=== PATIENT | female | born 1965 | race Caucasian/White ===

== ENCOUNTER 2018-02-01 08:29 | Observation (INO) ==
[2018-02-01] MEDS ORDERED: ONDANSETRON 4 MG/2 ML VIAL IV STA (11:49)
[2018-02-01] MEDS ORDERED: HYDROmorphone 2 MG/1 ML VIAL IV STA (11:49)
[2018-02-01] MEDS ORDERED: ONDANSETRON 4 MG/2 ML VIAL ONE (11:56)
[2018-02-01] MEDS ORDERED: HYDROmorphone 2 MG/1 ML VIAL ONE (11:56)
[2018-02-01 12:14] LABS: Basophils % 0.3 % (0.0-0.8); Eosinophils # 0.1 10*3/uL (0.0-0.87); Hematocrit 33.8 VOL% (35.7-47.0); Hemoglobin 10.8 GM/DL (12.0-16.0); Immature Granulocytes % 0.5 %; Immature Granulocytes Absolute 0.06 #; Lymphocytes # 1.1 10*3/uL (1.4-4.0); Lymphocytes % 9.4 % (21.3-54.2); Mean Corpuscular Hemoglobin 27 PG (27-34); Mean Corpuscular Volume 83.7 FL (87-102); Mean Platelet Volume 8.9 FL (9.6-12.0); Monocytes # 0.9 10*3/uL (0.11-0.8); Monocytes % 7.3 % (1.7-12.7); Neutrophils # 9.7 10*3/uL (1.4-7.4); Neutrophils % 81.5 % (38.7-73.9); Platelet Count 222 T/CUMM (130-400); Red Blood Count 4.04 MC/CUMM (3.8-5.5); Red Cell Distribution Width 18.5 % (9.3-17.3); White Blood Count 11.9 T/CUMM (4-12)
[2018-02-01 12:32] LABS: Bilirubin,Total 0.5 MG/DL (0.2-1.0); Calcium 8.2 MG/DL (8.5-10.1); Osmolality,Calculated 271.1 MOS/KG (273-304); Potassium 3.9 MMOL/L (3.5-5.1); Total Protein 6.9 G/DL (6.4-8.3)
[2018-02-01 13:16] LABS: Apearance,Urine CLEAR (Clear); Bilirubin,Urine Negative (Negative); Blood, Urine Small mg/dL (Negative); Glucose,Urine (UA) Negative (Negative); Ketones,Urine Negative (Negative); Mucus,Urine Occasional /LPF (Occasional); Nitrite,Urine Negative (Negative); Protein,Urine Negative; RBC,Urine 14 /HPF (0-4); Squamous Epithelial Cell,Urine Occasional /HPF (0-10); Urine Color Yellow (Yellow); Urine Specific Gravity 1.017 (1.001-1.035); Urine Urobilinogen < 2.0 EU/DL (0.2-1.0); WBC,Urine 3 /HPF (0-6)
[2018-02-01] MEDS ORDERED: DEXAMETHASONE 10 MG/1 ML VIAL IV STA (14:29)
[2018-02-01] MEDS ORDERED: DEXAMETHASONE 10 MG/1 ML VIAL ONE (14:35)
[2018-02-01] MEDS ORDERED: guaiFENesin 200 MG/10 ML UDCUP PO PRN (17:14)
[2018-02-01] MEDS ORDERED: chlorproMAZINE INJ 25 MG in SODIUM CHLORIDE 0.9% 100 ML IV PRN (17:14)
[2018-02-01] MEDS ORDERED: traMADol 50 MG TABLET PO PRN (17:14)
[2018-02-01] MEDS ORDERED: ACETAMINOPHEN 325 MG TABLET PO PRN (17:14)
[2018-02-01] MEDS ORDERED: chlorproMAZINE 25 MG TABLET PO PRN (17:14)
[2018-02-01] MEDS ORDERED: BENZTROPINE 2 MG/2 ML AMP IV PRN (17:14)
[2018-02-01] MEDS ORDERED: TEMAZEPAM 7.5 MG CAPSULE PO PRN (17:14)
[2018-02-01] MEDS ORDERED: LACTULOSE 20 GM/30 ML UDCUP PO PRN (17:14)
[2018-02-01] MEDS ORDERED: LOPERAMIDE 2 MG CAPSULE PO PRN ×2 (17:14)
[2018-02-01] MEDS ORDERED: MYLANTA/LIDO VISC 2:1 300 ML BOTTLE SWISH/SWAL PRN (17:14)
[2018-02-01] MEDS ORDERED: MAGNESIUM HYDROXIDE SUSP 30 ML UDCUP PO PRN (17:14)
[2018-02-01] MEDS ORDERED: chlorproMAZINE INJ 50 MG in SODIUM CHLORIDE 0.9% 100 ML IV PRN (17:14)
[2018-02-01] MEDS ORDERED: ALUMINUM/MAGNES/SIMETH MAX STR 30 ML UDCUP PO PRN (17:14)
[2018-02-01] MEDS ORDERED: PROMETHAZINE INJ 25 MG in SODIUM CHLORIDE 0.9% 50 ML IV PRN (17:14)
[2018-02-01] MEDS ORDERED: MYLANTA/LIDO VISC 2:1 300 ML BOTTLE SWISH/SPIT PRN (17:14)
[2018-02-01] MEDS ORDERED: ALPRAZolam 0.25 MG TABLET PO PRN (17:14)
[2018-02-01] MEDS ORDERED: diphenhydrAMINE CAP 25 MG CAPSULE PO PRN (17:14)
[2018-02-01] MEDS: SODIUM CHLORIDE 0.9% 1,000 ML IV SCH (18:52)
[2018-02-01] MEDS ORDERED: DOCUSATE SODIUM 100 MG CAPSULE PO PRN (19:37)
[2018-02-01] MEDS ORDERED: POLYETHYLENE GLYCOL POWDER 17 GM PACK PO PRN (19:37)
[2018-02-01] MEDS ORDERED: SIMETHICONE CHEW 125 MG TABLET PO PRN (19:37)
[2018-02-01] MEDS: LETROZOLE 2.5 MG TABLET PO SCH (20:37)
[2018-02-01] MEDS: predniSONE 10 MG TABLET PO SCH (20:38)
[2018-02-01] MEDS: LEVOFLOXACIN 500 MG TABLET PO SCH (20:38)
[2018-02-01] MEDS: ONDANSETRON 4 MG/2 ML VIAL IV PRN (20:39)
[2018-02-01] MEDS: HYDROmorphone 2 MG/1 ML VIAL IV PRN (20:41)
[2018-02-01] MEDS ORDERED: PANTOPRAZOLE 40 MG TABLET PO SCH (21:00)
[2018-02-02] MEDS: ONDANSETRON 4 MG/2 ML VIAL IV PRN (06:17)
[2018-02-02] MEDS: HYDROmorphone 2 MG/1 ML VIAL IV PRN (06:20)
[2018-02-02] MEDS ORDERED: DOCUSATE SODIUM 100 MG CAPSULE PO PRN (07:47)
[2018-02-02] MEDS ORDERED: POLYETHYLENE GLYCOL POWDER 17 GM PACK PO PRN (07:47)
[2018-02-02] MEDS ORDERED: DEXAMETHASONE 4 MG/1 ML VIAL IV ONE (08:01)
[2018-02-02] MEDS: SODIUM CHLORIDE 0.9% 1,000 ML IV SCH (08:54)
[2018-02-02] MEDS ORDERED: FLUoxetine 20 MG CAPSULE PO SCH (09:00)
[2018-02-02] MEDS ORDERED: predniSONE 10 MG TABLET PO SCH (09:00)
[2018-02-02] MEDS ORDERED: MELOXICAM 7.5 MG TABLET PO SCH (09:00)
[2018-02-02] MEDS: CALCIUM (CARBONATE)/VITAMIN D 600 MG-400 UNIT TABLET PO SCH ×2 (09:00→09:14)
[2018-02-02] MEDS ORDERED: LEVOFLOXACIN 500 MG TABLET PO SCH ×2 (09:00)
[2018-02-02] MEDS ORDERED: CALCIUM (CARBONATE)/VITAMIN D 600 MG-400 UNIT TABLET PO SCH (09:00)
[2018-02-02] MEDS: predniSONE 10 MG TABLET PO SCH (09:06)
[2018-02-02] MEDS: LEVOFLOXACIN 500 MG TABLET PO SCH (09:13)
[2018-02-02] MEDS: LETROZOLE 2.5 MG TABLET PO SCH (10:03)
[2018-02-02 10:49] VITALS: BP 115/54
[2018-02-02] MEDS ORDERED: HEPARIN LOCK FLUSH 500 UNIT/5 ML SYRINGE IV PRN (12:53)
[2018-02-02] MEDS ORDERED: LETROZOLE 2.5 MG TABLET PO SCH (21:00)
[2018-02-02] MEDS ORDERED: PANTOPRAZOLE 40 MG TABLET PO SCH (21:00)
[2018-02-02] MEDS ORDERED: NON-FORMULARY MEDICATION (Omeprazole [Prilosec] 20 MG) PO SCH (21:00)
== END 2018-02-02 13:45 | disposition home or self-care (01) ==
LOC: N.ED 08:29 → N.EDINP 08:29 → N.4E 18:01
PROVIDERS: ADMIT Specialist; ATTEND Specialist

== ENCOUNTER 2018-04-28 15:14 | Inpatient (IN) ==
[2018-05-04 12:31] VITALS: BP 143/78
== END 2018-05-04 13:45 | disposition home or self-care (01) | DRG 871 ==
LOC: N.ED 15:14 → N.EDINP 17:39 → N.4E 19:02
PROVIDERS: ADMIT Specialist; ATTEND Specialist

== ENCOUNTER 2018-05-14 03:46 | Inpatient (IN) ==
[2018-05-14] MEDS ORDERED: PANTOPRAZOLE 40 MG VIAL IV STA (04:00)
[2018-05-14] MEDS ORDERED: ONDANSETRON 4 MG/2 ML VIAL IV STA ×2 (04:00→06:44)
[2018-05-14] MEDS ORDERED: SODIUM CHLORIDE 0.9% 1,000 ML IV STA (04:00)
[2018-05-14 04:11] LABS: Basophils % 0.1 % (0.0-0.8); Eosinophils % 0.2 % (0.00-10.9); Hematocrit 38.8 VOL% (35.7-47.0); Hemoglobin 12.7 GM/DL (12.0-16.0); Immature Granulocytes % 0.4 %; Immature Granulocytes Absolute 0.04 #; Lymphocytes # 0.6 10*3/uL (1.4-4.0); Lymphocytes % 6.2 % (21.3-54.2); Mean Corpuscular HGB Conc 32.7 GM/DL (32-36); Mean Corpuscular Hemoglobin 28 PG (27-34); Mean Corpuscular Volume 84.3 FL (87-102); Mean Platelet Volume 8.8 FL (9.6-12.0); Monocytes # 0.2 10*3/uL (0.11-0.8); Monocytes % 2.1 % (1.7-12.7); NRBC # 0.02 10*3/uL; Neutrophils # 8.6 10*3/uL (1.4-7.4); Platelet Count 164 T/CUMM (130-400); Red Cell Distribution Width 23.8 % (9.3-17.3); White Blood Count 9.4 T/CUMM (4-12)
[2018-05-14] MEDS ORDERED: HYDROmorphone 2 MG/1 ML VIAL ONE (04:12)
[2018-05-14] MEDS: HYDROmorphone 2 MG/1 ML VIAL IV PRN ×6 (04:13→20:04)
[2018-05-14 04:49] LABS: Albumin 2.3 G/DL (3.4-5.0); Band Neutrophils 8 % (0-10); Bilirubin,Total 3.5 MG/DL (0.2-1.0); Calcium 8.1 MG/DL (8.5-10.1); Lymphocytes 6 % (20-55); Osmolality,Calculated 275.8 MOS/KG (273-304); Platelet Estimate Normal; Potassium 3.5 MMOL/L (3.5-5.1); Segmented Neutrophils 84 % (50-85); Total Cells Counted 100; Total Protein 6.5 G/DL (6.4-8.3)
[2018-05-14 04:50] LABS: Burr Cells Slight; Hypochromasia 1+; Ovalocytes Slight
[2018-05-14 04:58] LABS: Apearance,Urine CLEAR (Clear); Bacteria,Urine Occasional /HPF (Few); Bilirubin,Urine Negative (Negative); Blood, Urine Small mg/dL (Negative); Glucose,Urine (UA) Negative (Negative); Ketones,Urine 5 mg/dL (Negative); Mucus,Urine Many /LPF (Occasional); Nitrite,Urine Negative (Negative); Protein,Urine 30 MG/DL; RBC,Urine 23 /HPF (0-4); Squamous Epithelial Cell,Urine Occasional /HPF (0-10); Urine Color Amber (Yellow); Urine Specific Gravity 1.018 (1.001-1.035); WBC,Urine 2 /HPF (0-6)
[2018-05-14] MEDS ORDERED: ONDANSETRON 4 MG/2 ML VIAL IV ONE (05:34)
[2018-05-14] MEDS ORDERED: ALUM/MAG/SIMETH/LIDO VISC 1:1 30 ML BOTTLE PO STA (06:40)
[2018-05-14] MEDS ORDERED: HYDROmorphone 2 MG/1 ML VIAL IV STA (06:43)
[2018-05-14 07:06] LABS: INR 1.1; Partial Thromboplastin Time 23.4 SECS (0-40)
[2018-05-14] MEDS ORDERED: traMADol 50 MG TABLET PO PRN (08:25)
[2018-05-14] MEDS ORDERED: MAGNESIUM HYDROXIDE SUSP 30 ML UDCUP PO PRN (08:25)
[2018-05-14] MEDS ORDERED: LACTULOSE 20 GM/30 ML UDCUP PO PRN (08:25)
[2018-05-14] MEDS ORDERED: ALUMINUM/MAGNES/SIMETH MAX STR 30 ML UDCUP PO PRN (08:25)
[2018-05-14] MEDS ORDERED: LOPERAMIDE 2 MG CAPSULE PO PRN ×2 (08:25)
[2018-05-14] MEDS ORDERED: ALPRAZolam 0.25 MG TABLET PO PRN (08:25)
[2018-05-14] MEDS ORDERED: PROMETHAZINE INJ 25 MG in SODIUM CHLORIDE 0.9% 50 ML IV PRN (08:25)
[2018-05-14] MEDS ORDERED: MYLANTA/LIDO VISC 2:1 300 ML BOTTLE SWISH/SWAL PRN (08:25)
[2018-05-14] MEDS ORDERED: ACETAMINOPHEN 325 MG TABLET PO PRN (08:25)
[2018-05-14] MEDS ORDERED: BENZTROPINE 2 MG/2 ML AMP IV PRN (08:25)
[2018-05-14] MEDS ORDERED: MYLANTA/LIDO VISC 2:1 300 ML BOTTLE SWISH/SPIT PRN (08:25)
[2018-05-14] MEDS ORDERED: diphenhydrAMINE CAP 25 MG CAPSULE PO PRN (08:25)
[2018-05-14] MEDS ORDERED: chlorproMAZINE INJ 25 MG in SODIUM CHLORIDE 0.9% 100 ML IV PRN (08:25)
[2018-05-14] MEDS ORDERED: guaiFENesin 200 MG/10 ML UDCUP PO PRN (08:25)
[2018-05-14] MEDS ORDERED: chlorproMAZINE INJ 50 MG in SODIUM CHLORIDE 0.9% 100 ML IV PRN (08:25)
[2018-05-14] MEDS ORDERED: TEMAZEPAM 7.5 MG CAPSULE PO PRN (08:25)
[2018-05-14] MEDS ORDERED: chlorproMAZINE 25 MG TABLET PO PRN (08:25)
[2018-05-14] MEDS: SODIUM CHLORIDE 0.9% 1,000 ML IV SCH (11:38)
[2018-05-15] MEDS: SODIUM CHLORIDE 0.9% 1,000 ML IV SCH ×3 (00:58→20:30)
[2018-05-15 05:13] LABS: Basophils # 0.1 10*3/uL (0.0-0.2); Basophils % 0.8 % (0.0-0.8); Eosinophils % 0.4 % (0.00-10.9); Hematocrit 32.4 VOL% (35.7-47.0); Hemoglobin 10.6 GM/DL (12.0-16.0); Immature Granulocytes % 2.2 %; Immature Granulocytes Absolute 0.17 #; Lymphocytes # 0.8 10*3/uL (1.4-4.0); Lymphocytes % 9.8 % (21.3-54.2); Mean Corpuscular HGB Conc 32.7 GM/DL (32-36); Mean Corpuscular Hemoglobin 28 PG (27-34); Mean Corpuscular Volume 83.9 FL (87-102); Mean Platelet Volume 9.2 FL (9.6-12.0); Monocytes # 0.3 10*3/uL (0.11-0.8); Monocytes % 4.2 % (1.7-12.7); Neutrophils # 6.3 10*3/uL (1.4-7.4); Neutrophils % 82.6 % (38.7-73.9); Platelet Count 108 T/CUMM (130-400); Red Blood Count 3.86 MC/CUMM (3.8-5.5); Red Cell Distribution Width 23.4 % (9.3-17.3); White Blood Count 7.6 T/CUMM (4-12)
[2018-05-15 05:21] LABS: INR 1.4; PT Patient Result 14.2 SECS
[2018-05-15 05:40] LABS: Bilirubin,Total 4.9 MG/DL (0.2-1.0); Calcium 7.9 MG/DL (8.5-10.1); Osmolality,Calculated 269.4 MOS/KG (273-304); Potassium 3.5 MMOL/L (3.5-5.1); Total Protein 5.7 G/DL (6.4-8.3); Uric Acid 7.6 MG/DL (2.6-6.0)
[2018-05-15 05:48] LABS: Band Neutrophils 2 % (0-10); Lymphocytes 6 % (20-55); Nucleated Red Blood Cells 1 (0-5); Platelet Estimate Decreased; Segmented Neutrophils 90 % (50-85); Total Cells Counted 100
[2018-05-15 05:49] LABS: Hypochromasia Slight; Ovalocytes Slight
[2018-05-15] MEDS: HYDROmorphone 2 MG/1 ML VIAL IV PRN ×4 (07:48→20:31)
[2018-05-15] MEDS: oxyCODONE IR 5 MG TABLET PO PRN (16:29)
[2018-05-16] MEDS: HYDROmorphone 2 MG/1 ML VIAL IV PRN ×5 (04:24→17:04)
[2018-05-17] MEDS: HYDROmorphone 2 MG/1 ML VIAL IV PRN ×5 (00:17→17:11)
[2018-05-17] MEDS: SODIUM CHLORIDE 0.9% 1,000 ML IV SCH ×2 (04:06→22:30)
[2018-05-17 05:01] LABS: Albumin 1.5 G/DL (3.4-5.0); Bilirubin,Total 5.6 MG/DL (0.2-1.0); Calcium 7.9 MG/DL (8.5-10.1); Osmolality,Calculated 260.7 MOS/KG (273-304); Total Protein 5.3 G/DL (6.4-8.3)
[2018-05-17] MEDS: oxyCODONE IR 5 MG TABLET PO PRN ×2 (07:57→17:12)
[2018-05-18] MEDS: HYDROmorphone 2 MG/1 ML VIAL IV PRN ×5 (01:32→17:31)
[2018-05-18 07:18] LABS: Basophils % 0.8 % (0.0-0.8); Eosinophils % 0.4 % (0.00-10.9); Hematocrit 27.1 VOL% (35.7-47.0); Hemoglobin 9.2 GM/DL (12.0-16.0); Immature Granulocytes % 9.8 %; Immature Granulocytes Absolute 0.24 #; Lymphocytes # 0.6 10*3/uL (1.4-4.0); Lymphocytes % 25.4 % (21.3-54.2); Mean Corpuscular HGB Conc 33.9 GM/DL (32-36); Mean Corpuscular Hemoglobin 28 PG (27-34); Mean Corpuscular Volume 80.9 FL (87-102); Mean Platelet Volume 10.1 FL (9.6-12.0); Monocytes # 0.5 10*3/uL (0.11-0.8); Monocytes % 21.7 % (1.7-12.7); NRBC # 0.02 10*3/uL; Neutrophils % 41.9 % (38.7-73.9); Platelet Count 83 T/CUMM (130-400); Red Blood Count 3.35 MC/CUMM (3.8-5.5); Red Cell Distribution Width 22.5 % (9.3-17.3); White Blood Count 2.4 T/CUMM (4-12)
[2018-05-18 07:38] LABS: Albumin 1.5 G/DL (3.4-5.0); Calcium 8.2 MG/DL (8.5-10.1); Osmolality,Calculated 255.9 MOS/KG (273-304); Potassium 3.1 MMOL/L (3.5-5.1); Total Protein 5.2 G/DL (6.4-8.3)
[2018-05-18 07:49] LABS: Band Neutrophils 3 % (0-10); Eosinophils 1 % (0-10); Lymphocytes 18 % (20-55); Nucleated Red Blood Cells 3 (0-5); Platelet Estimate Decreased; Segmented Neutrophils 58 % (50-85); Total Cells Counted 100
[2018-05-18 07:50] LABS: Anisocytosis 2+
[2018-05-18] MEDS ORDERED: FILGRASTIM-SNDZ 300 MCG/0.5 ML SYRINGE SUBCUT ONE (08:09)
[2018-05-18] MEDS: LACTULOSE 20 GM/30 ML UDCUP PO SCH ×3 (10:08→20:46)
[2018-05-18] MEDS: IBUPROFEN 600 MG TABLET PO SCH ×2 (17:31→20:42)
[2018-05-19] MEDS: HYDROmorphone 2 MG/1 ML VIAL IV PRN ×2 (00:06→10:46)
[2018-05-19] MEDS: ONDANSETRON 4 MG/2 ML VIAL IV PRN ×2 (00:08→08:33)
[2018-05-19 05:04] LABS: Basophils % 5.3 % (0.0-0.8); Eosinophils % 0.9 % (0.00-10.9); Hematocrit 29.6 VOL% (35.7-47.0); Hemoglobin 9.9 GM/DL (12.0-16.0); Immature Granulocytes % 10.5 %; Mean Corpuscular HGB Conc 33.4 GM/DL (32-36); Mean Corpuscular Hemoglobin 28 PG (27-34); Mean Corpuscular Volume 83.4 FL (87-102); Mean Platelet Volume 9.6 FL (9.6-12.0); Monocytes % 23.7 % (1.7-12.7); Neutrophils % 23.6 % (38.7-73.9); Platelet Count 120 T/CUMM (130-400); Red Blood Count 3.55 MC/CUMM (3.8-5.5); Red Cell Distribution Width 22.6 % (9.3-17.3); White Blood Count 1.1 T/CUMM (4-12)
[2018-05-19 05:05] LABS: Basophils # 0.1 10*3/uL (0.0-0.2); Immature Granulocytes Absolute 0.12 #; Lymphocytes # 0.4 10*3/uL (1.4-4.0); Monocytes # 0.3 10*3/uL (0.11-0.8); NRBC # 0.03 10*3/uL; Neutrophils # 0.3 10*3/uL (1.4-7.4)
[2018-05-19 05:36] LABS: Albumin 1.7 G/DL (3.4-5.0); Bilirubin,Total 7.3 MG/DL (0.2-1.0); Calcium 8.1 MG/DL (8.5-10.1); Osmolality,Calculated 253.2 MOS/KG (273-304); Potassium 3.5 MMOL/L (3.5-5.1); Total Protein 5.5 G/DL (6.4-8.3)
[2018-05-19 08:35] LABS: Band Neutrophils 2 % (0-10); Lymphocytes 49 % (20-55); Nucleated Red Blood Cells 1 (0-5); Platelet Estimate Decreased; Segmented Neutrophils 25 % (50-85); Total Cells Counted 100
[2018-05-19 08:36] LABS: Atypical Lymphocytes Few; Hypochromasia Slight; Target Cells Few
[2018-05-19] MEDS: IBUPROFEN 600 MG TABLET PO SCH (10:45)
[2018-05-19] MEDS: FILGRASTIM-SNDZ 300 MCG/0.5 ML SYRINGE SUBCUT SCH (10:47)
[2018-05-19] MEDS: LACTULOSE 20 GM/30 ML UDCUP PO SCH ×2 (10:56→22:26)
[2018-05-19] MEDS: SODIUM CHLORIDE 0.9% 1,000 ML IV SCH (11:35)
[2018-05-20] MEDS: HYDROmorphone 2 MG/1 ML VIAL IV PRN ×4 (02:00→15:43)
[2018-05-20] MEDS: SODIUM CHLORIDE 0.9% 1,000 ML IV SCH (05:33)
[2018-05-20 05:45] LABS: Hematocrit 31.3 VOL% (35.7-47.0); Hemoglobin 10.5 GM/DL (12.0-16.0); Immature Granulocytes % 9.4 %; Immature Granulocytes Absolute 0.18 #; Lymphocytes # 0.4 10*3/uL (1.4-4.0); Lymphocytes % 20.4 % (21.3-54.2); Mean Corpuscular HGB Conc 33.5 GM/DL (32-36); Mean Corpuscular Hemoglobin 28 PG (27-34); Mean Corpuscular Volume 84.4 FL (87-102); Mean Platelet Volume 9.2 FL (9.6-12.0); Monocytes # 0.4 10*3/uL (0.11-0.8); Monocytes % 21.5 % (1.7-12.7); NRBC # 0.09 10*3/uL; Neutrophils # 0.9 10*3/uL (1.4-7.4); Neutrophils % 47.7 % (38.7-73.9); Platelet Count 127 T/CUMM (130-400); Red Blood Count 3.71 MC/CUMM (3.8-5.5); Red Cell Distribution Width 23.8 % (9.3-17.3); White Blood Count 1.9 T/CUMM (4-12)
[2018-05-20 06:14] LABS: Band Neutrophils 8 % (0-10); Burr Cells Slight; Hypochromasia 1+; Lymphocytes 26 % (20-55); Nucleated Red Blood Cells 8 (0-5); Ovalocytes Slight; Segmented Neutrophils 41 % (50-85); Total Cells Counted 100
[2018-05-20 06:15] LABS: Atypical Lymphocytes Few; Platelet Estimate Decreased
[2018-05-20 06:34] LABS: Albumin 1.7 G/DL (3.4-5.0); Bilirubin,Total 7.6 MG/DL (0.2-1.0); Calcium 8.4 MG/DL (8.5-10.1); Osmolality,Calculated 254.2 MOS/KG (273-304); Potassium 3.6 MMOL/L (3.5-5.1); Total Protein 5.6 G/DL (6.4-8.3)
[2018-05-20] MEDS ORDERED: FUROSEMIDE 20 MG/2 ML VIAL IV ONE (07:35)
[2018-05-20] MEDS: FILGRASTIM-SNDZ 300 MCG/0.5 ML SYRINGE SUBCUT SCH (09:12)
[2018-05-20] MEDS: LACTULOSE 20 GM/30 ML UDCUP PO SCH (09:18)
[2018-05-20 11:47] LABS: Mucus,Urine Occasional /LPF (Occasional); RBC,Urine 41 /HPF (0-4); WBC,Urine 6 /HPF (0-6)
[2018-05-20 11:48] LABS: Apearance,Urine Cloudy (Clear); Protein,Urine 100 MG/DL; Urine Color Amber (Yellow)
[2018-05-20 11:49] LABS: Bilirubin,Urine 4 mg/dL (Negative); Blood, Urine Large mg/dL (Negative); Glucose,Urine (UA) Negative (Negative); Ketones,Urine Negative (Negative); Nitrite,Urine Negative (Negative)
[2018-05-20] MEDS ORDERED: MORPHINE 10 MG/1 ML VIAL IV PRN (15:45)
[2018-05-20] MEDS ORDERED: LORazepam 2 MG/1 ML VIAL IV PRN (15:46)
[2018-05-20 16:33] VITALS: BP 109/67
== END 2018-05-20 20:46 | disposition expired | DRG 597 ==
LOC: EDBD → EDUNIT# → N.ED 03:46 → N.EDINP 06:48 → N.4E 08:20
PROVIDERS: ADMIT Specialist; ATTEND Specialist